=== PATIENT | female | born 1940 | race Caucasian/White ===

== ENCOUNTER 2017-03-11 15:24 | Inpatient (IN) | payer MEDICARE ==
[2017-03-11 16:44] LABS: #Basophils 0.2 thou/uL (0.0-0.2); #Eosinphils 0.3 thou/uL (0.0-0.7); #Lymphocytes 3.2 thou/uL (1.20-3.40); #Monocytes 0.9 thou/uL (0.11-0.59); #Neutrophils 5.3 thou/uL (1.40-6.50); %Basophils 1.6 % (0.0-1.0); %Eosinophils 2.8 % (0.0-10.0); %Lymphocytes 32.7 % (21.0-51.0); %Monocytes 9.1 % (0.0-10.0); %Neutrophils 53.8 % (42.0-75.0); Hemoglobin 13.1 g/dL (12.0-16.0); Mean Corpuscular HGB CONC 31.4 g/dL (32.0-36.0); Mean Corpuscular Hemoglobin 26.4 pg (27.0-31.0); Mean Corpuscular Volume 84.2 fl (81.0-99.0); Mean Platelet Volume 7.9 fL (7.4-10.4); Platelet Count 270 thou/uL (130-400); RBC Distribution Width 13.8 % (11.5-14.5); Red Blood Cell (RBC) Count 4.94 mill/uL (4.20-5.40); White Blood Cell (WBC) Count 9.8 thou/uL (4.8-10.8)
[2017-03-11 17:40] LABS: ALT (SGPT) 15 U/L (8-55); AST (SGOT) 24 U/L (5-34); Alkaline Phosphatase 104 U/L (40-150); Anion Gap 15 mmol/L (10-20); BUN (Urea Nitrogen) 19 mg/dL (9.8-20.1); Bilirubin, Total 0.4 mg/dL (0.2-1.2); Calc. Creatinine Clearance 0 mL/min (70-130); Calcium 8.6 mg/dL (7.8-10.44); Carbon Dioxide 22 mmol/L (23-31); Chloride 108 mmol/L (98-107); Estimated GFR-MDRD 73; Globulin 3.3 g/dL (2.4-3.5); Glucose 86 mg/dL (83-110); Potassium 4.6 mmol/L (3.5-5.1); Protein, Total 6.3 g/dL (6.0-8.3); Sodium 140 mmol/L (136-145)
[2017-03-11] MEDS ORDERED: traMADol HCl 50 MG TAB ONE (20:06)
[2017-03-12] MEDS ORDERED: traMADol HCl 50 MG TAB ONE ×2 (11:13→16:39)
[2017-03-12] MEDS ORDERED: Promethazine HCl 25 MG/ML VIAL ONE (18:50)
[2017-03-13] MEDS ORDERED: traMADol HCl 50 MG TAB PO PRN ×2 (11:45→12:20)
[2017-03-13] MEDS ORDERED: Nitroglycerin 0.4 MG TAB (25 Tab Bottle) SL PRN (12:20)
[2017-03-13] MEDS ORDERED: Non-Formulary Item 1 EACH (Temazepam [Restoril] 30 MG) PO PRN (12:20)
[2017-03-13] MEDS ORDERED: Temazepam 15 MG CAP PO PRN (12:38)
[2017-03-13] MEDS ORDERED: Sodium Chloride 0.9% 10 ML ONE (13:39)
[2017-03-13] MEDS: HYDROcodone/Acetaminophen 5/325 mg Tablet PO PRN ×2 (14:40→21:52)
[2017-03-13] MEDS ORDERED: DILTIAZEM HCL 30 MG PO SCH (15:00)
[2017-03-13] MEDS ORDERED: Non-Formulary Item 1 EACH (Omeprazole [Omeprazole] 40 MG) PO SCH (21:00)
--- NOTE | 2017-03-14 07:28 | HP ---
REASON FOR ADMISSION/CHIEF COMPLAINT: Significant abdominal pain and weakness. HISTORY OF PRESENT ILLNESS: The patient is an unfortunate 76-year-old white female with a history o f chronic abdominal pain for the last 3 years secondary to most likely adhesions from vaginal mesh a s well as previous abdominal surgeries. She has had a hysterectomy, oophorectomy, cholecystectomy. She has had vaginal mesh placement for incontinence, but had to be removed because of erosion into the vaginal wall and to the lower back. She has been left with chronic abdominal pain with inabilit y to sit or stand for a period of time secondary to pain. She is on chronic pain medication and has been bedridden, but is agreeing to start on therapy to attempt to increase her activities of daily living. PAST MEDICAL HISTORY: Her past medical history is also complicated by a history of fibromyalgia, mi graine headaches, mixed connective tissue disease, coronary artery disease. PAST SURGICAL HISTORY: As above. She also has had bilateral knee replacement, tonsillectomy, left elbow and ankle surgery. SOCIAL HISTORY: She lives with her . She is a nonsmoker, nondrinker. CURRENT MEDICATIONS: Cymbalta 30 mg daily, diltiazem 30 mg twice daily, Nexium 40 mg daily, Dulcola x as needed, levothyroxine 50 mcg daily, trazodone 50 mg daily, tramadol 50 mg every 8 hours, Omepr azole 40 mg daily, temazepam 30 mg nightly, Phenergan 25 mg as needed, Hale 5/325 every 4 hours as needed, and Protonix 40 mg daily. REVIEW OF SYSTEMS: HEENT: She denies any headaches at this time or change in vision or hearing, but does have a histor y of recurrent migraines. CARDIOVASCULAR: She has a history of coronary disease, but no history of chest pain, shortness of b reath, palpitations or syncope at this time. RESPIRATORY: She denies cough, sputum production, pneumonia, asthma, tuberculosis. GASTROINTESTINAL: She does have a history of the above-mentioned abdominal pain, but has no diarrhe a, constipation, hematemesis, melena, nausea or vomiting. GENITOURINARY: She has no dysuria. Does have incontinence, has no hematuria. NEUROLOGIC: She denies changes in mental status or weakness or numbness. She does have chronic stuart n. MUSCULOSKELETAL: She has chronic pain in her lower back upon sitting and upon movement and in fact is not ambulatory at this time. She wears diapers because of inability to go to the bathroom. ALLERGIES: She is allergic to CODEINE and MORPHINE and MEDROL. PHYSICAL EXAMINATION: GENERAL: Patient is an elderly white female lying in bed in no distress, alert, oriented, lucid. VITAL SIGNS: Blood pressure 113/60, O2 sat 94%, respirations 18, pulse 64, afebrile. HEENT: Pupils are equal, round, and react to light and accommodation. Sclerae are anicteric, Conju nctivae pale. Oral mucous membranes are slightly dehydrated. NECK: Supple. There are no nodes or masses. JVP is not elevated. LUNGS: Clear to auscultation and percussion. CARDIAC: Cardiac examination showed regular rhythm. No gallops or murmurs. ABDOMEN: Soft, but diffusely tender. No masses or organomegaly. SKIN/EXTREMITIES: Show no edema, clubbing, cyanosis. There are scars from left knee surgery. NEUROLOGIC: Cranial nerves are intact. Deep tendon reflexes 2+ and equal. The patient is unable t o walk secondary to pain. LABORATORY: Shows white count 9800, hematocrit 41, hemoglobin 13, sodium 140, potassium 4.6, chlori de 108, bicarbonate 22, BUN 19, creatinine 0.77, albumin 3.0, globulin 3.3, AST 24, ALT 15. ASSESSMENT: Unfortunate 76-year-old white female with chronic abdominal pain most likely due to adh esions from vaginal mesh and previous surgeries. These adhesions have caused her to have pain upon sitting or standing and therefore essentially made her bedridden for several years. She is admitted to the hospital to start on intensive inpatient physical therapy. She will be continued on her chr onic pain medications. She also will be continued on her prehospitalization medications of thyroid for hypothyroidism, diltiazem for her coronary disease and hypertension and Protonix for reflux symp toms. The patient understands that she needs to cooperate with therapy in order to improve and agre es to this.
[2017-03-14 07:50] VITALS: TEMP 97.1
[2017-03-14] MEDS ORDERED: Levothyroxine Sodium 50 MCG TAB PO SCH (09:00)
[2017-03-14] MEDS ORDERED: traZODone HCl 50 MG TAB PO SCH (09:00)
[2017-03-14] MEDS ORDERED: Bisacodyl 5 MG TAB PO SCH (09:00)
[2017-03-14] MEDS ORDERED: Non-Formulary Item 1 EACH (Esomeprazole Magnesium [Nexium 24hr] 40 MG) PO SCH (09:00)
[2017-03-14] MEDS: HYDROcodone/Acetaminophen 5/325 mg Tablet PO PRN (12:40)
[2017-03-14 13:03] VITALS: BP 126/63
== END 2017-03-14 14:15 | DRG 92 ==
LOC: NAV ERS 15:24 → NAV ACUTE 15:25
PROVIDERS: ADMIT Internal Medicine; ATTEND Internal Medicine
DX: G89.29 Other chronic pain (principal); M35.1 Other overlap syndromes; I10 Essential (primary) hypertension; Z74.01 Bed confinement status; M54.5 Low back pain; R10.84 Generalized abdominal pain; Z75.3 Unavailability and inaccessibility of health-care facilities; Z59.1 Inadequate housing; Z65.5 Exposure to disaster, war and other hostilities; R53.1 Weakness; N99.2 Postprocedural adhesions of vagina; T83.71 Erosion of implanted mesh and other prosthetic materials to surrounding organ or tissue; M79.7 Fibromyalgia; G43.909 Migraine, unspecified, not intractable, without status migrainosus; I25.10 Atherosclerotic heart disease of native coronary artery without angina pectoris; E03.9 Hypothyroidism, unspecified; K21.9 Gastro-esophageal reflux disease without esophagitis
CPT/HCPCS: 80053; 85025; 93005; A4216